=== PATIENT | female | born 1990 | race Caucasian/White ===

== ENCOUNTER 2017-01-24 17:26 | Emergency (ER) | payer MEDICAID, OTHER ==
[2017-01-24 17:53] VITALS: RESP 20
--- NOTE | 2017-01-24 17:59 | C.PDOC ---
History Of Present Illness 26 yo female w/o significant PMHx come in for evaluation of bodyaches, mild headache, nasal congestion, sore throat, dry cough gradually developed for past 2-3 days. Pt sts, " today have more of sore throat, hurts to swallow". Otherwise , pt denies high fever, lethargy, denies worse headache of life, drooling, dyspnea, SOB, wheezing, abd. pain, N/V/D, back pain, UTI sx, rash, denies recent travel or known sick contact. Ambulate to Ed for evaluation, not in any apparent distress. Time Seen by Provider: 01/24/17 17:38 Chief Complaint (Nursing): Flu-like Symptoms History Per: Patient Onset/Duration Of Symptoms: Gradual Current Symptoms Are (Timing): Worse Past Medical History Reviewed: Historical Data, Nursing Documentation, Vital Signs Vital Signs: Last Vital Signs Temp 98.3 F 01/24/17 20:15 Pulse 80 01/24/17 20:15 Resp 20 01/24/17 20:15 BP 122/78 01/24/17 20:15 Pulse Ox 97 01/24/17 20:15 - Medical History PMH: No Chronic Diseases Surgical History: No Surg Hx Family History: States: No Known Family Hx - Social History Hx Tobacco Use: No Hx Alcohol Use: No Hx Substance Use: No - Immunization History Hx Tetanus Toxoid Vaccination: Yes Hx Influenza Vaccination: Yes Hx Pneumococcal Vaccination: Yes Review Of Systems Except As Marked, All Systems Reviewed And Found Negative. Constitutional: Positive for: Fever, Malaise. Negative for: Chills Eyes: Negative for: Vision Change ENT: Positive for: Nose Discharge, Nose Congestion, Throat Pain, Throat Swelling. Negative for: Ear Pain, Ear Discharge Cardiovascular: Negative for: Chest Pain, Edema, Light Headedness Respiratory: Positive for: Cough. Negative for: Shortness of Breath, Wheezing Gastrointestinal: Negative for: Nausea, Vomiting, Abdominal Pain, Diarrhea Genitourinary: Negative for: Dysuria Musculoskeletal: Negative for: Neck Pain Skin: Negative for: Rash Neurological: Negative for: Weakness, Numbness, Altered Mental Status, Headache , Dizziness Physical Exam - Physical Exam Appears: Well, Non-toxic, No Acute Distress Skin: Normal Color, Warm, Dry, No Rash Eye(s): bilateral: PERRL Ear(s): Bilateral: Normal Nose: No Flaring, Discharge (B/L nasal congestion with scant clear rhinorhea.) Oral Mucosa: Moist, No Drooling Tongue: Normal Appearing Lips: Normal Appearing Throat: Erythema (diffuse B/L with edema.), Exudate (B/L, scant), No Drooling, Other (uvula midline, no edema.) Neck: Supple Cardiovascular: Rhythm Regular, No JVD Respiratory: No Decreased Breath Sounds, No Accessory Muscle Use, No Stridor, No Wheezing Gastrointestinal/Abdominal: Soft, No Tenderness Back: Normal Inspection Extremity: No Pedal Edema, No Deformity Neurological/Psych: Oriented x3, Normal Speech ED Course And Treatment - Laboratory Results Result Diagrams: 01/24/17 18:13 01/24/17 18:13 Lab Interpretation: No Acute Changes O2 Sat by Pulse Oximetry: 99 Pulse Ox Interpretation: Normal Progress Note: Pt was OBS in ED for 2 hours and repots moderate improvement in sx. On re-eval, pt is afebrile, hemodynamicaly stable. non-toxic. Tolerate PO well in Ed. PulseOx 99% RA. neck: Supple, (-) meningeal sign. ENT: exam c/w acutre pharyngitis. Lungs: CTA B/L, BS equal B/L. Abd: benign. Neuorlogicaly intact. Diagnostics review and no acute abnormalities noted, UA- normal study. Influenza (-). Pt has clinical findings c/w acute pharyngitis. Pt advised on course of ds. ref. to F/u with PMD in 1-2 days for re-eavl. return to ED if any worsening or new changes. Disposition Counseled Patient/Family Regarding: Studies Performed, Diagnosis, Need For Followup - Disposition Referrals: [facility] [Outside] Disposition: HOME/ ROUTINE Disposition Time: 19:39 Condition: STABLE Additional Instructions: Encourage fluids Take medication as prescribed Follow up with PM Din 2-3 days for re-evaluation. return to ED if any worsening or new changes. Prescriptions: Amoxicillin/Clavulanate [Augmentin 875 MG-125 MG] 1 tab PO BID #14 tab Ibuprofen [Motrin Tab] 600 mg PO Q6 #20 tab Instructions: Pharyngitis (ED) Forms: [employer] (Lao) - Clinical Impression Clinical Impression: Pharyngitis
[2017-01-24] MEDS ORDERED: Sodium Chloride 0.9% 1,000 ML IV ONE (18:00)
[2017-01-24 18:18] LABS: BASO # 0.1 K/uL (0.0-0.2); BASO % 0.6 % (0.0-2.0); EOS % 0.2 % (0.0-4.0); HEMATOCRIT 34.5 % (34.0-47.0); LYMPH % 8.8 % (20.0-40.0); MEAN CELL VOLUME 78.1 fL (81.0-99.0); MEAN CORPUSCULAR HEMOGLOBIN 25.6 pg (27.0-31.0); MEAN CORPUSCULAR HGB CONC 32.8 g/dL (33.0-37.0); MEAN PLATELET VOLUME 8.6 fL (7.2-11.7); MONO # 1.6 K/uL (0.0-0.8); MONO % 14.2 % (0.0-10.0); PLATELET COUNT 303 K/uL (130-400); RED CELL DISTRIBUTION WIDTH 14.8 % (11.5-14.5); WHITE BLOOD COUNT 11.5 K/uL (4.8-10.8)
[2017-01-24 18:22] LABS: RBC URINE 1 /hpf (0-3); TRANSITIONAL EPITHIAL < 1 /hpf (0-3); URINE BACTERIA RARE (<OCC); URINE BILIRUBIN NEGATIVE (NEGATIVE); URINE BLOOD NEGATIVE (NEGATIVE); URINE COLOR Yellow (YELLOW); URINE GLUCOSE (UA) NORMAL (Normal); URINE KETONE NEGATIVE (NEGATIVE); URINE PROTEIN NEGATIVE (NEGATIVE); URINE UROBILINOGEN NORMAL mg/dL (0.2-1.0); WBC URINE 2 /hpf (0-5)
[2017-01-24 18:23] LABS: URINE LEUKOCYTE ESTERASE NEGATIVE Leu/uL (Negative)
[2017-01-24 18:27] LABS: BLOOD UREA NITROGEN 9 mg/dL (7-17); CARBON DIOXIDE 24 mmol/L (22-30); CHLORIDE 98 mmol/L (98-107); GFR AFRICAN-AMERICAN > 60; GLUCOSE,RANDOM 93 mg/dL (65-105); POTASSIUM 3.6 mmol/L (3.6-5.2); SODIUM 137 mmol/L (132-148)
[2017-01-24 19:11] LABS: BASOPHIL 2 % (0-2); NEUTROPHIL 72 % (50-75); TOTAL CELLS COUNTED 100
[2017-01-24 19:12] LABS: GIANT PLATELETS PRESENT; LARGE PLATELETS PRESENT
[2017-01-24] MEDS ORDERED: cefTRIAXone IV 1 gm in Dextros 50 ML IVPB ONE (19:49)
[2017-01-24 20:27] VITALS: BP 122/78; PULSE 80; TEMP 98.3
[2017-01-24 22:12] VITALS: O2SAT 99
== END 2017-01-24 20:15 | disposition home or self-care (01) ==
LOC: C.ER 17:26
DX: J02.9 Acute pharyngitis, unspecified (principal)
CPT/HCPCS: 80048; 81001; 84703; 85025; 87040; 87804; 96374; 96375; 99284; J0696; J1885; J2765; J7040